=== PATIENT | male | born 1975 | race Caucasian/White ===

== ENCOUNTER 2020-10-28 01:44 | Emergency (ER) | payer OTHER ==
[~2020-10-28] VITALS: Ht 175.3 cm; Wt 74.8 kg
[2020-10-28 01:45] VITALS: BP 138/79
[2020-10-28] MEDS ORDERED: HYDROCODON-ACE1 EAC7 PO (02:47)
[2020-10-28] MEDS ORDERED: MOBIC15 MG PO (02:47)
== END 2020-10-28 03:00 | disposition home or self-care (01) ==
LOC: ER 01:44
DX: T23.201A Burn of second degree of right hand, unspecified site, initial encounter (principal); K21.9 Gastro-esophageal reflux disease without esophagitis; F17.210 Nicotine dependence, cigarettes, uncomplicated; Z88.6 Allergy status to analgesic agent; Z88.0 Allergy status to penicillin; X15.2XXA Contact with hotplate, initial encounter; Y93.89 Activity, other specified; Y92.89 Other specified places as the place of occurrence of the external cause; Y99.8 Other external cause status